=== PATIENT | male | born 1985 | race Two or more races ===

== ENCOUNTER → 2016-10-10 | Day surgery (SDC) | payer OTHER ==
[~2016-10-10] MED LIST: NO MEDICATIONS
--- NOTE | ~2016-10-10 | OR ---
Unit #: [id number] #: [id number] Patient: HILLARY NAVAS [id number] [address] [place], [place] [address] [id number] O MR#: [id number] NAME: HILLARY NAVAS ROOM: Date of Procedure: 10/10/2016 Admission Date: 10/10/2016 Surgeon: Jong Marques Jr., M.D. : 1985 Attending Physician: Jong Marques Jr., M.D. Primary Care Physician: Primary Care Physician No OPERATIVE REPORT INDICATIONS FOR PROCEDURE The patient is a 31-year-old [place] male, who recently presented to the office complaining of a bulge and swelling and some discomfort in the right inguinal area. On examination, he was noted to have a right inguinal hernia, which was partially reducible. It was felt he needed this repaired. He is brought in this time at his request for repair of this. He understands the procedure including risks, including that of infection, nerve injury with chronic pain and hematoma formation, as well as injury to the spermatic cord and testicle, and consents. PREOPERATIVE DIAGNOSIS Right inguinal hernia. POSTOPERATIVE DIAGNOSIS Right inguinal hernia, noting an indirect inguinal hernia. ANESTHESIA General with 0.5% Marcaine with epinephrine locally. PROCEDURE PERFORMED Right inguinal hernia repair. This was done with high ligation of the sac and plug and patch technique. DESCRIPTION OF PROCEDURE The patient was positioned in supine position. After being anesthetized, he was prepped and draped in routine fashion for right inguinal hernia repair. The right inguinal area was locally blocked with 0.5% Marcaine with epinephrine as a field block. A transverse incision was then made over the right inguinal canal approximately 3 to 4 inches in length. This was carried down through subcutaneous tissue through Lise and Camper fascia with hemostasis being achieved with Bovie cautery. After going down to the fascia, the external oblique fascia was exposed and split from the external ring past the internal ring. The ilioinguinal nerve was retracted laterally to avoid any damage. The cord structure was freed from the pubic tubercle back to the internal ring. Multiple cremasteric fibers were divided with the Bovie cautery. The spermatic cord itself appeared intact with no evidence of any problems or injuries. There was a moderate-size indirect sac present. This was freed up the cord structures and opened, no evidence of any incarcerated tissue or sliding components. It was high ligated under direct visualization with a 0 Ethibond suture followed by 0 Ethibond transfixion stitch just distal to the first. The redundant portion of the sac was excised. There was also spermatic cord Unit #: [id number] #: [id number] Patient: HILLARY NAVAS lipoma, which was clamped at its base, divided, removed, and ligated with 2-0 silk suture. A large plug was then soaked in antibiotic solution as well as the patch. The plug placed in the internal ring area and sutured circumferentially with interrupted 0 Ethibond sutures and the patch placed over the floor of the inguinal canal and sutured circumferentially with interrupted 0 Ethibond sutures. The wound was irrigated with antibiotic solution. After hemostasis achieved with Bovie cautery, the external oblique fascia was closed over the top of the cord structures in the ilioinguinal nerve with 3-0 running Vicryl stitch. The Lise and Camper fascia were approximated with interrupted 3-0 Vicryl sutures. Skin edges approximated with stainless-steel skin clips and skin stapling device. Sterile dressings were applied externally. Estimated blood loss less than 50 mL. The patient received less than 1000 mL crystalloid solution during the procedure. Sponges and instruments counts were correct x3. No drains used. No complications. The patient was taken to the recovery room with stable vital signs in satisfactory condition. Dictated by... Jong Marques Jr., M.D. JMB/nury TD: 10/10/2016 22:53 JOB #: [id number] OPERATIVE REPORT Page 1 of 1 X Jong Marques MD PROCEDURE OPERATIVE NOTE
== END | disposition home or self-care (01) ==
LOC: CSUR 05:16
DX: K40.90 Unilateral inguinal hernia, without obstruction or gangrene, not specified as recurrent (principal); F17.210 Nicotine dependence, cigarettes, uncomplicated
CPT/HCPCS: 88302; 88304; C1781; J0131; J0690; J1885; J2250; J2405; J3010